=== PATIENT | male | born 1935 | race Caucasian/White ===

== ENCOUNTER → 2016-12-31 | Outpatient (CLI) | payer OTHER ==
[~2016-12-31] MED LIST: /BACIOPOI; /CELE20CA; AREDS2 OU; ASPI1TAB PO; CALC600T57 PO; COLA100C2; HYDR25TA6; MULTTAB PO; PATANOL; POTA10CA2; VICO5TAB; fish oil; magnesium
--- NOTE | 2016-12-31 13:30 | REP ---
PA and lateral chest: Comparison is 02/24/2010. There is minor atelectasis inferiorly in the left lung as an interval change. The remainder of the left lung is clear. The right lung is clear. Cardiac size is normal. The roxanne, mediastinum, bony thorax are unchanged. There is thoracic scoliosis convex right at the thoracolumbar junction, unchanged. Impression: Atelectasis inferiorly in the left lung. No other interval change. Signed by George Landaverde MD 12/31/2016 01:21 P
== END | disposition home or self-care (01) ==
LOC: M RAD 13:04
PROVIDERS: ATTEND Nurse Practitioner Adult Health
DX: J98.11 Atelectasis (principal)

== ENCOUNTER → 2018-01-04 | Outpatient (CLI) | payer OTHER ==
[~2018-01-04] MED LIST changes: -/BACIOPOI; -/CELE20CA; -AREDS2 OU; -ASPI1TAB PO; -CALC600T57 PO; -COLA100C2; -HYDR25TA6; +LIDOCAINE 1% MDV 20ML VIAL As Ordered; -MULTTAB PO; -PATANOL; -POTA10CA2; -VICO5TAB; -fish oil; -magnesium
== END ==
LOC: M RADPRO 12:10
DX: E04.9 Nontoxic goiter, unspecified (principal); I10 Essential (primary) hypertension; Z79.899 Other long term (current) drug therapy
CPT/HCPCS: 10022

== ENCOUNTER 2018-10-23 11:27 | Day surgery (SDC) | payer OTHER ==
[2018-10-23] MEDS: NS 1,000 ML IV (11:45)
[2018-10-23] MEDS ORDERED: LIDOCAINE 2% INJ 100 MG/5 ML SDV (FOR ANES.) As Ordered (12:25)
[2018-10-23] MEDS ORDERED: PROPOFOL 200 MG/20 ML VIAL As Ordered ×2 (12:25→13:06)
[2018-10-23] MEDS ORDERED: fentaNYL 100 MCG/2 ML INJECTION (J3010) As Ordered (12:44)
== END 2018-10-23 14:02 | disposition home or self-care (01) ==
LOC: M OPP 11:27
DX: K64.0 First degree hemorrhoids (principal); K57.30 Diverticulosis of large intestine without perforation or abscess without bleeding; Z98.0 Intestinal bypass and anastomosis status; Z85.038 Personal history of other malignant neoplasm of large intestine; K22.8 Other specified diseases of esophagus; K44.9 Diaphragmatic hernia without obstruction or gangrene; K31.89 Other diseases of stomach and duodenum; R12 Heartburn
CPT/HCPCS: G0105

== ENCOUNTER → 2021-09-09 | Outpatient (CLI) | payer OTHER ==
[~2021-09-09] MED LIST changes: +/BACIOPOI; +AREDS2 OU; +ASPI81TA26 PO; +CALC600T57 PO; +CELE1CAP4; +COLA100C2; +FISH7.5C PO; +HYDR-3490; +HYDR25TA6; -LIDOCAINE 1% MDV 20ML VIAL As Ordered; +MULTTAB PO; +OCUVTAB4 PO; +PATANOL; +POTA10CA2; +POTA1TAB14 PO; +VICO5TAB; +fish oil; +magnesium
--- NOTE | 2021-09-10 06:44 | REP ---
INDICATION: HYPOTHYROIDISM COMPARISON: 04/29/2020 TECHNIQUE: Carvalho scale and color evaluation of the thyroid gland using the linear high frequency transducer. FINDINGS: The thyroid gland is normal in contour, size overall parenchymal echotexture/vascularity. Right thyroid lobe measures 3.5 x 2.0 x 1.8 cm and includes 8.7 x 4.2 x 6.6 mm midpole hypoechoic nodule, 1.2 x 0.9 x 1.2 cm midpole cyst with calcification, and 6.8 x 7.4 x 4.5 mm mid/lower pole complex cystic nodule with calcification. Isthmus measures 3.1 mm in width. Left thyroid lobe measures 3.8 x 1.6 x 1.7 cm and includes 1.1 x 0.8 x 1.0 cm complex nodule and 3.1 x 3.9 x 3.4 mm lower pole complex cyst. IMPRESSION: Multiple bilateral indeterminate lesions as described and measured above. Allowing for variation in technique, findings appear relatively stable when compared to prior examination <Electronically signed by Shane Whiting > 09/10/21 [id number]
== END ==
LOC: M RAD 11:05
PROVIDERS: ATTEND Nurse Practitioner Family
DX: E04.1 Nontoxic single thyroid nodule (principal)

== ENCOUNTER → 2022-09-20 | Outpatient (CLI) | payer MEDICARE ==
[~2022-09-20] MED LIST changes: +FISH10005 PO; -FISH7.5C PO
== END ==
LOC: M RAD 12:09
PROVIDERS: ATTEND Otolaryngology
DX: E04.1 Nontoxic single thyroid nodule (principal)

== ENCOUNTER → 2023-06-07 | Outpatient (CLI) | payer OTHER ==
[~2023-06-07] MED LIST changes: +POTA-298 PO; -POTA1TAB14 PO
== END ==
LOC: M RAD 13:14
PROVIDERS: ATTEND Internal Medicine
DX: I65.22 Occlusion and stenosis of left carotid artery (principal)

== ENCOUNTER → 2024-02-08 | Outpatient (CLI) | payer OTHER ==
[2024-02-08 11:46] LABS: BLOOD UREA NITROGEN 15 MG/DL (9-23); CREATININE FOR GFR 1.04 MG/DL (0.70-1.30); GLOMERULAR FILTRATION RATE > 60.0 (>35)
== END ==
LOC: M LAB 10:47
PROVIDERS: ATTEND Surgery
DX: K43.2 Incisional hernia without obstruction or gangrene (principal)

== ENCOUNTER → 2024-02-22 | Outpatient (CLI) | payer OTHER ==
[~2024-02-22] MED LIST changes: +GASTROGRAFIN SOLUTION 30ML As Ordered ONE; +ISOVUE-370 76% 100ML VIAL As Ordered ONE
== END ==
LOC: M RAD 12:31
PROVIDERS: ATTEND Surgery
DX: K43.2 Incisional hernia without obstruction or gangrene (principal)
CPT/HCPCS: 74177; Q9963; Q9967

== ENCOUNTER 2024-04-03 12:31 | Day surgery (SDC) | payer OTHER ==
[~2024-04-03] VITALS: Ht 177.8 cm; Wt 76.7 kg
[~2024-04-03 12:31] MED LIST changes: +AZEL205.5 NS; +COLA100C5 PO; +CVS5000S2 SL; +FAMO1TAB11 PO; -GASTROGRAFIN SOLUTION 30ML As Ordered ONE; -ISOVUE-370 76% 100ML VIAL As Ordered ONE; +LIDOCAINE 2% 100MG/5ML SDV (FOR ANES.) As Ordered ONE; +MULT-90 PO; +NETA2.5D2 OP; +ONDANSETRON 4MG 2ML VIAL As Ordered ONE; +PRES10CA2 PO; +ROCURONIUM BROMIDE 50MG/5ML VIAL As Ordered ONE; +XALA0.007; +fentaNYL 100 MCG/2 ML INJECTION As Ordered ONE; +propofoL 200 MG/20 ML VIAL As Ordered ONE
[2024-04-03] MEDS: LR 1,000 ML IV SCH (13:32)
[2024-04-03] MEDS: ceFAZolin SOD 2 GM in IV 1 EA IV ONE (14:42)
[2024-04-03] MEDS ORDERED: SUGAMMADEX SODIUM 500 MG/5 ML VIAL (BRIDION) As Ordered ONE (15:01)
[2024-04-03] MEDS ORDERED: ACETAMINOPHEN 1000MG 100ML IV BAG As Ordered ONE (15:01)
[2024-04-03] MEDS ORDERED: ESMOLOL INJ 100MG/10ML VIAL As Ordered ONE (15:11)
[2024-04-03] MEDS ORDERED: oxyCODONE 5MG TAB PO PRN (16:35)
[2024-04-03] MEDS ORDERED: MORPHINE 2 MG/ML 1ML VIAL IV PRN (16:35)
[2024-04-03] MEDS ORDERED: fentaNYL 100 MCG/2 ML INJECTION IV PRN (16:35)
[2024-04-03] MEDS ORDERED: ONDANSETRON 4MG 2ML VIAL IV PRN (16:35)
[2024-04-03] MEDS ORDERED: NS 1,000 ML IV SCH (17:45)
[2024-04-03] MEDS: traMADol 50 MG TAB PO PRN (17:59)
[2024-04-03 19:23] VITALS: BP 144/66; TEMP 97.2; O2SAT 99
== END 2024-04-03 19:32 | disposition home or self-care (01) ==
LOC: M SDC 12:31
PROVIDERS: ATTEND Surgery
DX: K40.90 Unilateral inguinal hernia, without obstruction or gangrene, not specified as recurrent (principal); K66.0 Peritoneal adhesions (postprocedural) (postinfection); G47.9 Sleep disorder, unspecified; I10 Essential (primary) hypertension; Z85.038 Personal history of other malignant neoplasm of large intestine; Z90.49 Acquired absence of other specified parts of digestive tract; K21.9 Gastro-esophageal reflux disease without esophagitis; N40.0 Benign prostatic hyperplasia without lower urinary tract symptoms; J30.1 Allergic rhinitis due to pollen; Z79.899 Other long term (current) drug therapy
CPT/HCPCS: 49650; C1781; J0131; J0665; J0690; J1100; J1805; J2405; J3010

== ENCOUNTER → 2024-10-31 | Outpatient (CLI) | payer OTHER ==
[~2024-10-31] MED LIST changes: -LIDOCAINE 2% 100MG/5ML SDV (FOR ANES.) As Ordered ONE; -ONDANSETRON 4MG 2ML VIAL As Ordered ONE; -ROCURONIUM BROMIDE 50MG/5ML VIAL As Ordered ONE; -fentaNYL 100 MCG/2 ML INJECTION As Ordered ONE; -propofoL 200 MG/20 ML VIAL As Ordered ONE
== END ==
LOC: M RAD 11:55
PROVIDERS: ATTEND Internal Medicine
DX: E04.2 Nontoxic multinodular goiter (principal)

== ENCOUNTER → 2024-12-05 | Outpatient (CLI) | payer MEDICARE | LOC: M RAD 13:31 | PROVIDERS: ATTEND Internal Medicine | DX: N28.1 Cyst of kidney, acquired (principal) ==